=== PATIENT | female | born 1955 | race Caucasian/White ===

== ENCOUNTER 2019-05-01 11:11 | Emergency (ER) | payer BC ==
[~2019-05-01] VITALS: Ht 160 cm; Wt 89.4 kg
[~2019-05-01 11:11] MED LIST: ALBU90OI61 INH; ALPR.5 PO; AMOCLA875 PO; Armour Thyroid15 MG PO; Augmentin 875-1 EACH PO; CLON.5 PO; HYDACE10B PO; HYDPRA60 TOP; IBUP800 PO; LAMICTAL XR300 MG PO; LAMO100 PO; LEVSOD50 PO; LEVSOD75 PO; LEXAPRO; Lamictal200 MG PO; NAPR500 PO; Norco 5-325 Ta1 EACH PO; ONDA4ODT MM; OXYACE5T PO; Prinivil10 MG; RINGWORM14.2 GM TOP; SERT100 PO; SIMV40; VALA500; VITAMIN B122500 MCG PO; VITAMIN D32000 UNIT PO; Voltaren100 GM UD; ZOLP12.5 PO; ZOLP5 PO; Zantac150 MG PO; Zithromax250 MG PO
[2019-05-01] MEDS ORDERED: Norco 5-325 Ta1 EACH PO (12:14)
== END 2019-05-01 12:26 | disposition home or self-care (01) ==
LOC: ER 11:11
DX: G89.18 Other acute postprocedural pain (principal); J34.89 Other specified disorders of nose and nasal sinuses; I10 Essential (primary) hypertension; E03.9 Hypothyroidism, unspecified; F31.9 Bipolar disorder, unspecified; G47.30 Sleep apnea, unspecified; Z88.5 Allergy status to narcotic agent; Z88.8 Allergy status to other drugs, medicaments and biological substances; Z79.899 Other long term (current) drug therapy
CPT/HCPCS: 99282

== ENCOUNTER 2021-04-19 06:29 | Emergency (ER) | payer MEDICARE, BC ==
[~2021-04-19] VITALS: Ht 160 cm; Wt 95.2 kg
[2021-04-19] MEDS ORDERED: CEPH500 PO (08:37)
[2021-04-19] MEDS ORDERED: Norco 5-325 Ta1 EACH PO ×2 (08:37→08:45)
[2021-04-19] MEDS ORDERED: Bactrim Ds Tab1 EACH PO (08:37)
== END 2021-04-19 08:48 | disposition home or self-care (01) ==
LOC: ER 06:29
DX: L03.211 Cellulitis of face (principal); L02.01 Cutaneous abscess of face; I10 Essential (primary) hypertension; E03.9 Hypothyroidism, unspecified; Z88.5 Allergy status to narcotic agent; Z91.048 Other nonmedicinal substance allergy status; Z79.899 Other long term (current) drug therapy
CPT/HCPCS: 99282

== ENCOUNTER 2021-04-21 14:21 | Emergency (ER) | payer MEDICARE, BC ==
[~2021-04-21] VITALS: Ht 157.5 cm; Wt 96.2 kg
[~2021-04-21 14:21] MED LIST changes: +Bactrim Ds Tab1 EACH PO; +CEPH500 PO
[2021-04-21 16:40] LABS: BASOPHILS ABSOLUTE AUTO 0.03 K/mm3 (0.00-0.23); BASOPHILS PERCENT AUTO 0 % (0-2); EOSINOPHILS ABSOLUTE AUTO 0.08 K/mm3 (0.00-0.68); EOSINOPHILS PERCENT AUTO 1 % (0-6); Hematocrit 41.6 % (33.0-51.0); Hemoglobin 13.6 g/dL (11.5-16.0); IMMATURE GRAN ABSOLUTE AUTO 0.02 K/mm3 (0.00-0.10); IMMATURE GRAN PERCENT AUTO 0 % (0-1); LYMPHOCYTES ABSOLUTE AUTO 1.92 K/mm3 (0.84-5.20); LYMPHOCYTES PERCENT AUTO 28 % (21-46); MONOCYTES ABSOLUTE AUTO 0.74 K/mm3 (0.16-1.47); MONOCYTES PERCENT AUTO 11 % (4-13); Mean Corpuscular HGB 31.6 pg (26.0-34.0); Mean Corpuscular HGB Conc 32.7 g/dL (31.5-36.5); Mean Corpuscular Volume 97 fL (80-100); Mean Platelet Volume 10.6 fL (9.1-12.4); NEUTROPHILS ABSOLUTE AUTO 3.98 K/mm3 (1.96-9.15); NEUTROPHILS PERCENT AUTO 59 % (41-73); Platelet Count 256 K/mm3 (150-400); RDW Coefficient Variation 13.8 % (11.7-14.2); RDW Standard Deviation 49.4 fL (35.1-46.3); Red Blood Cell Count 4.31 M/mm3 (3.80-5.20); White Blood Cell Count 6.77 K/mm3 (4.00-11.30)
[2021-04-21 16:43] LABS: Bilirubin, Total 0.3 mg/dL (0.1-1.0); Bun/Creatinine Ratio 18.8 (12.0-20.0); Calcium, Blood 9.9 mg/dL (8.5-10.1); Creatinine, Blood 1.01 mg/dL (0.40-1.00); Globulin, Blood 3.9 g/dL (2.2-4.0); Potassium, Blood 4.6 mmol/L (3.5-5.5); Total Protein, Blood 7.9 g/dL (6.4-8.2)
[2021-04-21] MEDS ORDERED: CEPH500 PO (18:57)
== END 2021-04-21 19:15 | disposition home or self-care (01) ==
LOC: ER 14:21
PROVIDERS: Physician Assistant
DX: L03.211 Cellulitis of face (principal); I10 Essential (primary) hypertension; E03.9 Hypothyroidism, unspecified; Z88.5 Allergy status to narcotic agent; Z79.899 Other long term (current) drug therapy
CPT/HCPCS: 36415; 70487; 80053; 85025; 99284-25; Q9967

== ENCOUNTER 2022-04-12 08:54 | Day surgery (SDC) | payer MEDICARE, BC ==
[~2022-04-12] VITALS: Ht 160 cm; Wt 97.0 kg
[~2022-04-12 08:54] MED LIST changes: +Multivitamins1 EACH PO; +VALA500 PO
[2022-04-12] MEDS ORDERED: ATOR40TA (09:49)
== END 2022-04-12 11:31 | disposition home or self-care (01) ==
LOC: ORSCSDS 08:54
PROVIDERS: Internal Medicine Gastroenterology
PROC: 0DB68ZX Excision of Stomach, Via Natural or Artificial Opening Endoscopic, Diagnostic (ICD-10-PCS; principal; 2022-04-12 10:30)
PROC: 0DBK8ZX Excision of Ascending Colon, Via Natural or Artificial Opening Endoscopic, Diagnostic (ICD-10-PCS; principal; 2022-04-12 10:30)
PROC: 0DBM8ZX Excision of Descending Colon, Via Natural or Artificial Opening Endoscopic, Diagnostic (ICD-10-PCS; principal; 2022-04-12 10:30)
PROC: 0DBN8ZX Excision of Sigmoid Colon, Via Natural or Artificial Opening Endoscopic, Diagnostic (ICD-10-PCS; principal; 2022-04-12 10:30)
PROC: 0DB98ZX Excision of Duodenum, Via Natural or Artificial Opening Endoscopic, Diagnostic (ICD-10-PCS; principal; 2022-04-12 10:30)
DX: Z12.11 Encounter for screening for malignant neoplasm of colon (principal); K30 Functional dyspepsia; Z86.010 Personal history of colon polyps; D12.2 Benign neoplasm of ascending colon; D12.4 Benign neoplasm of descending colon; D12.5 Benign neoplasm of sigmoid colon; K20.90 Esophagitis, unspecified without bleeding; K29.70 Gastritis, unspecified, without bleeding; K64.8 Other hemorrhoids; K44.9 Diaphragmatic hernia without obstruction or gangrene; E66.9 Obesity, unspecified; Z68.38 Body mass index [BMI] 38.0-38.9, adult; Z79.899 Other long term (current) drug therapy
CPT/HCPCS: 82947; 88305; 88342; J2704; J7120

== ENCOUNTER → 2024-09-21 | Outpatient (CLI) | payer MEDICARE, BC ==
[~2024-09-21] MED LIST changes: +ATOR40TA
[2024-09-21 19:40] LABS: Bacterial Vaginosis PCR Negative (NEGATIVE); Candida Group, PCR NOT DETECTED (NOT DETECT); Candida glabrata-krusei, PCR NOT DETECTED (NOT DETECT)
== END ==
LOC: LAB SHORT 12:00 → LAB 12:00
PROVIDERS: Internal Medicine
DX: N76.0 Acute vaginitis (principal)
CPT/HCPCS: 81515